=== PATIENT | male | born 1945 | race Caucasian/White ===

== ENCOUNTER 2019-01-16 19:49 | Inpatient (IN) | payer OTHER ==
[~2019-01-16] VITALS: Ht 193 cm; Wt 99.8 kg
[2019-01-16 19:49] VITALS: BP_SYST 110
--- NOTE | 2019-01-16 19:49 | NUR ---
Placed in room 04. Placed on cardiac exercise specialist, blood pressure machine and pulse oximeter. To gown for exam. Side rails up. Report given to MAYO Richardson. BIB sq 184 from [facility]
--- NOTE | 2019-01-16 19:50 | NUR ---
ER Dr. Sol at bedside examining patient.
[2019-01-16] MEDS ORDERED: NACL 0.9% 1,000 ML IV SCH (19:55)
[2019-01-16] MEDS ORDERED: MOM PO (20:05)
[2019-01-16] MEDS ORDERED: DOCU-144 PO (20:05)
[2019-01-16] MEDS ORDERED: TOP25 PO (20:05)
[2019-01-16] MEDS ORDERED: FINA5TAB3 PO (20:05)
[2019-01-16] MEDS ORDERED: DABI150C PO (20:05)
[2019-01-16] MEDS ORDERED: NEUTPHOSP PO (20:05)
[2019-01-16] MEDS ORDERED: VITD2000 PO (20:05)
[2019-01-16] MEDS ORDERED: TAMS0.4C96 PO (20:05)
[2019-01-16] MEDS ORDERED: CHOL500037 PO (20:05)
[2019-01-16] MEDS ORDERED: FERR140T2 PO (20:05)
[2019-01-16] MEDS ORDERED: DILT240C91 PO (20:05)
[2019-01-16] MEDS ORDERED: LACT1CAP89 PO (20:05)
[2019-01-16] MEDS ORDERED: POTA20TA83 PO (20:05)
[2019-01-16] MEDS ORDERED: SIMV20TA2 PO (20:08)
[2019-01-16] MEDS ORDERED: SENN-234 PO (20:08)
[2019-01-16] MEDS ORDERED: ACET-2165 PO (20:08)
[2019-01-16] MEDS ORDERED: HYDR-4274 PO (20:08)
--- NOTE | 2019-01-16 20:09 | NUR ---
Medication reconciliation completed with information provided by [facility]. Any prior medication reconciliation on file was reviewed and corrected.
[2019-01-16 20:25] LABS: BLOOD, URINE 3+ (NEGATIVE); CLARITY/URINE SL CLOUDY (CLEAR); COLOR,URINE AMBER (YELLOW); GLUCOSE,URINE NEGATIVE (NEGATIVE); KETONES,URINE NEGATIVE (NEGATIVE); LEUKOCYTE ESTERASE ,URINE 3+ (NEGATIVE); NITRITE, URINE NEGATIVE (NEGATIVE); PH,URINE 5.5 (5.0-8.0); PROTEIN URINE 2+ (NEGATIVE)
--- NOTE | 2019-01-16 20:25 | NUR ---
Pt BIB ALS C/O hypotension EMS started 22G on scene and gave 500ml bolus prior to arrival. Pt recently underwent hernia repair and has been admitted for sepsis/ septic shock after proceedure. Today the pt presented hypotension and hand pain. [facility] the RT phalanges. Denies any other complaints at this time. Will continue to monitor.
[2019-01-16 20:33] LABS: BILIRUBIN,URINE NEGATIVE (NEGATIVE)
[2019-01-16 20:35] LABS: BACTERIA,URINE MANY /HPF (None Seen); RBC,URINE 50-80 /HPF (0-3); WBC,URINE >100 /HPF (0-3)
[2019-01-16 20:36] LABS: HEMATOCRIT 28.7 % (36-54); HEMOGLOBIN 9.4 g/dL (14.0-18.0); MEAN CORPUSCULAR HEMOGLOBIN 27 pg (27-31); MEAN CORPUSCULAR HGB CONC 33 % (32-36); MEAN CORPUSCULAR VOLUME 83 fL (79.0-98.0); PLATELET COUNT (AUTO) 286 K/uL (130-430); RED BLOOD CELL COUNT(AUTO) 3.46 MIL/uL (4.2-6.2); RED CELL DISTRIBUTION WIDTH 15.8 % (9.0-15.0)
[2019-01-16 20:36] LABS: MUCUS,URINE None Seen /LPF (None Seen)
[2019-01-16 20:38] LABS: INR 1.3 (0.80-1.20); PROTHROMBIN TIME 13.4 SECS (9.5-12.5)
[2019-01-16 20:39] LABS: ANION GAP 7 (5-15); CHLORIDE 103 mmol/L (98-107); CREATININE 1.64 mg/dL (0.55-1.30); GLUCOSE 96 mg/dL (70-99); POTASSIUM 3.6 mmol/L (3.5-5.1); SODIUM SERUM 134 mmol/L (136-145); UREA NITROGEN, BLOOD 19 mg/dL (8-21)
[2019-01-16 20:48] LABS: WHITE BLOOD COUNT (AUTO) 26.2 K/uL (4.8-10.8)
[2019-01-16 20:56] LABS: ALANINE AMINOTRANSFERASE 12 U/L (12-78); ALBUMIN 2.2 g/dL (3.4-4.8); ASPARTATE AMINOTRANSFERASE 20 U/L (10-37); THYROID STIMULATING HORMONE 1.18 uIu/mL (0.36-3.74); TOTAL BILIRUBIN 0.8 mg/dL (0.0-1.0)
[2019-01-16 20:57] LABS: BAND % (MANUAL) 10 % (0-6); BASOPHILS % (MANUAL) 0 % (0-2); EOSINOPHILS % (MANUAL) 0 % (0-7); LYMPHOCYTES % (MANUAL) 3 % (20-46); MONOCYTES % (MANUAL) 5 % (0-11)
--- NOTE | 2019-01-16 21:30 | NUR ---
Pt is resting in bed, no acute distress noted at this time. Will continue to monitor.
[2019-01-16] MEDS ORDERED: NOREPINEPHRINE BITARTRATE 4 MG in NS 246 ML IV ONE ×2 (22:15→23:45)
[2019-01-16] MEDS ORDERED: PIPERACILLIN/TAZO 3.375 GM in NS 50 ML IV ONE ×2 (22:15→23:30)
[2019-01-16] MEDS ORDERED: NACL 0.9% 1,000 ML IV ONE ×2 (22:15→23:30)
--- NOTE | 2019-01-16 23:00 | NUR ---
# 20 gauge angiocath placed to LT AC. Use of asceptic technique. Opsite placed over site. Blood return noted. Blood for lab drawn from site. Flushed with 10 cc of normal saline. No evidence of infiltration noted. Patient tolerated well.
[2019-01-16] MEDS ORDERED: PIPERACILLIN/TAZOBACTAM 3.375 GM/VIAL (ZOSYN) IV ONE ×2 (23:14→23:15)
[2019-01-16] MEDS ORDERED: NON-FORMULARY MEDICATION (Cholecalciferol* (Vitamin D3*) 50,000 UNIT) PO SCH (23:30)
[2019-01-16] MEDS ORDERED: ACETAMINOPHEN 325 MG TABLET PO PRN (23:30)
[2019-01-17] VITALS (16 sets, daily range): BP systolic 121–166
--- NOTE | 2019-01-17 00:09 | NUR ---
Pt is resting quietly in bed, no acute distress noted at this time. Will continue to monitor.
--- NOTE | 2019-01-17 00:12 | NUR ---
Patient will be admitted to care of Dr. Guerin. Admitted to ICU unit. Will go to room 8. Belongings list completed. Summary report printed. Report will be given at bedside.
--- NOTE | 2019-01-17 01:00 | NUR ---
ADMISSION NOTE Received patient from ER via gurney. Patient admitted with diagnosis of SEPTIC SHOCK. Patient is awake, alert, oriented X 4. Patient oriented to hospital room, call light, toileting, pain management and safety-teach back done. Personal belongings checked and Belongings List documented. Call light within reach.
--- NOTE | 2019-01-17 01:10 | NUR ---
Transfer to ICU via ACLS protocol. Licensed nurse present. IV present no signs or symptoms of infiltration.
--- NOTE | 2019-01-17 01:52 | NUR ---
CONSULTATION PAGED/CALLED Reason for Consultation:Septic Shock Person Who was Notified:Brittney cuevas Consulting Physician: Dr Carrasco (Dr Dupree) Monotype Operator Specialty: Pulmonary Ordering Physician: Dr Guerin
--- NOTE | 2019-01-17 01:52 | NUR ---
CONSULTATION PAGED/CALLED Reason for Consultation:Septic Shock Person Who was Notified:Brittney cuevas Consulting Physician: Dr Rodriguez Vision Impaired Teacher Specialty: Cardio Ordering Physician: Dr Guerin
--- NOTE | 2019-01-17 01:52 | NUR ---
CONSULTATION PAGED/CALLED Reason for Consultation:Septic Shock Person Who was Notified:Brittney cuevas Consulting Physician: Dr Raj Auguste Continuity Editor Specialty: ID Ordering Physician: Dr Guerin
--- NOTE | 2019-01-17 04:00 | NUR ---
BM PT PLACED ON BEDPAN AT THIS TIME. MODERATE AMOUNT OF SOFT BROWN STOOL NOTED. PT TOLERATED WELL. WILL CONTINUE TO MONITOR PT.
[2019-01-17] MEDS: PIPERACILLIN/TAZO 3.375 GM in NS 50 ML IV SCH ×3 (05:56→17:32)
[2019-01-17] MEDS ORDERED: PIPERACILLIN/TAZOBACTAM 3.375 GM/VIAL (ZOSYN) IV ONE (06:01)
--- NOTE | 2019-01-17 07:25 | NUR ---
ENDORSEMENT BEDSIDE REPORT GIVEN TO SHAWN HUBER USING SBAR APPROACH.
--- NOTE | 2019-01-17 07:50 | NUR ---
AM ASSESSMENT. PT ALERT, AND ABLE TO MAKE NEEDS KNOWN. VITAL SIGNS TAKEN, POULTRY HANGER SINUS TACHYCARDIA, WITH MINIMAL DISCOMFORTS TO LOWER ABDOMEN. PT HAD HIS PAIN MED 2 HOURS AGO. HX HERNIA REPAIR. THE TIP OF HIS RIGHT RING FINGER CYANOTIC , REMAINING FINGERS REDDENED EXCEPT HIS 2 THUMBS. HE STATED THAT HE HAD NOTICED ALL THESE WHEN HE WAS IN REHAB WHICH WAS ABOUT 3 WEEKS AGO.
[2019-01-17] MEDS ORDERED: FERROUS SULFATE 325 MG TABLET.DR PO SCH (08:00)
[2019-01-17] MEDS ORDERED: POTASSIUM CHLORIDE 20 MEQ TAB.PRT.SR PO SCH (09:00)
[2019-01-17] MEDS ORDERED: LACTOBACILLUS RHAMNOSUS GG 1 CAP CAPSULE PO SCH (09:00)
[2019-01-17] MEDS ORDERED: NAPH,MB-DB/K PH,MBDB 250 MG TAB PO SCH (09:00)
[2019-01-17] MEDS ORDERED: CHOLECALCIFEROL (VITAMIN D3) 2,000 UNIT TABLET PO SCH (09:00)
[2019-01-17] MEDS ORDERED: MILK OF MAGNESIA 30 ML UDC PO SCH (09:00)
[2019-01-17] MEDS ORDERED: DOCUSATE SODIUM 100 MG CAPSULE PO SCH (09:00)
[2019-01-17] MEDS ORDERED: TOPIRAMATE 25 MG TABLET(TOPAMAX) PO SCH (09:00)
[2019-01-17] MEDS ORDERED: FINASTERIDE 5 MG TABLET (PROSCAR) PO SCH (09:00)
[2019-01-17] MEDS ORDERED: DILTIAZEM HCL 240 MG CAP.SR.24H PO SCH (09:00)
[2019-01-17] MEDS ORDERED: HYDROcodone/ACETAMIN 10-325 MG TAB PO PRN (09:15)
--- NOTE | 2019-01-17 10:05 | NUR ---
PROCESS COACH. PT SEEN AND EXAMINED BY DR MONROY.
[2019-01-17] MEDS ORDERED: NACL 0.9% 1,000 ML IV SCH (11:15)
--- NOTE | 2019-01-17 11:30 | NUR ---
TEST. PATIENT HAVING AN ECHOCARDIOGRAM AT THIS HOUR.
--- NOTE | 2019-01-17 11:42 | NUR ---
Informed CM of urgent need to transfer to [place] for gangrene of the finger. Spoke with Jimmy.
[2019-01-17] MEDS ORDERED: *HEPARIN PER PHARMACY XX ONE (11:45)
--- NOTE | 2019-01-17 12:06 | NUR ---
Received call from Gonzalez PAULINE Martinez at [phone]. Complete review done with her and she is aware of urgent transfer for gangrene of finger. She will call the unit back directly. Jimmy with our CM dept made aware.
--- NOTE | 2019-01-17 12:10 | NUR ---
[place] transfer request: Informed Sherry [facility] dept # [phone] for the urgent transfer pt to [facility]. The pt will need Vascular surgery ashtyn. Sherry stated, SAMARA Michelle aware and is working on transferring the pt. She will call back once able to find an available bed and location. The pt and his cousin Bertha # [phone] made aware, both agreed with the transfer. Bertha will notify Christine/dtr as well. Bertha is pt's careers adviser and lives close to the pt. Christine lives in [place]. >> DC package delivered to ICU.-- RN Amy made aware.
[2019-01-17 12:20] LABS: HEMATOCRIT 29.7 % (36-54); HEMOGLOBIN 9.6 g/dL (14.0-18.0); MEAN CORPUSCULAR HEMOGLOBIN 27 pg (27-31); MEAN CORPUSCULAR HGB CONC 32 % (32-36); MEAN CORPUSCULAR VOLUME 83 fL (79.0-98.0); PLATELET COUNT (AUTO) 282 K/uL (130-430); RED BLOOD CELL COUNT(AUTO) 3.59 MIL/uL (4.2-6.2)
[2019-01-17 12:25] LABS: CHLORIDE 108 mmol/L (98-107); POTASSIUM 3.6 mmol/L (3.5-5.1); SODIUM SERUM 139 mmol/L (136-145)
[2019-01-17 12:40] LABS: WHITE BLOOD COUNT (AUTO) 22.3 K/uL (4.8-10.8)
[2019-01-17 12:46] LABS: ANION GAP 9 (5-15)
[2019-01-17 12:50] LABS: ATYPICAL LYMPHOCYTES % 0 % (0-0); BAND % (MANUAL) 7 % (0-6); BASOPHILS % (MANUAL) 0 % (0-2); EOSINOPHILS % (MANUAL) 0 % (0-7); LYMPHOCYTES % (MANUAL) 5 % (20-46); MONOCYTES % (MANUAL) 7 % (0-11)
[2019-01-17 12:55] LABS: CREATININE 1.36 mg/dL (0.55-1.30); GLUCOSE 80 mg/dL (70-99); UREA NITROGEN, BLOOD 18 mg/dL (8-21)
[2019-01-17] MEDS ORDERED: HEPARIN SODIUM,PORCINE 2000 UNITS/0.4 ML BOLUS IVP PRN (13:00)
[2019-01-17] MEDS ORDERED: HEPARIN SODIUM,PORCINE 5000 UNITS/ML VIAL IVP ONE (13:00)
[2019-01-17] MEDS ORDERED: HEPARIN SODIUM,PORCINE 3000 UNITS/0.6 ML BOLUS IVP PRN (13:00)
[2019-01-17] MEDS ORDERED: HEPARIN 25,000 UNITS in 250 ML PREMIX IV PRN (13:00)
--- NOTE | 2019-01-17 14:15 | NUR ---
IV DRIP. APTT 53.4, HEPARIN 8000 UNITS IVP GIVEN. HEPARIN DRIP INITIATED AT 1800 UNITS PER HR, WILL FOLLOW UP ON APTT DRAW AT [address] [facility].
--- NOTE | 2019-01-17 16:30 | NUR ---
FAMILY. CALL RECEIVED FROM PT'S DAUGHTER DONNA. UPDATE GIVEN. AWARE OF HER FATHER'S TRANSFER ORDERS TO [facility].
--- NOTE | 2019-01-17 18:38 | NUR ---
DISCHARGE. REPORT GIVEN TO MAYO GRAHAM. #[phone]. PT TRANSPORTED TO [facility] VIA AMBULANCE WITH PERSONAL BELONGINGS. SALINE LOCKS IN RIGHT UPPER ARM AND LEFT A/C INTACT AND FLUSHED, ALONSO CATHETER DRAINED 600 ML.
[2019-01-17] MEDS ORDERED: SIMVASTATIN 20 MG TABLET PO SCH (21:00)
[2019-01-17] MEDS ORDERED: TAMSULOSIN HCL 0.4 MG CAP PO SCH (21:00)
[2019-01-17] MEDS ORDERED: SENNOSIDES/DOCUSATE SODIUM 1 TAB TABLET(SENOKOT-S) PO SCH (21:00)
== END 2019-01-17 18:40 | disposition short-term general hospital (02) | DRG 871 ==
LOC: SED 19:49 → SIC 23:25
PROVIDERS: ADMIT Internal Medicine; ATTEND Internal Medicine
DX: A41.9 Sepsis, unspecified organism (principal); R65.21 Severe sepsis with septic shock; N39.0 Urinary tract infection, site not specified; I74.2 Embolism and thrombosis of arteries of the upper extremities; I96 Gangrene, not elsewhere classified; N40.0 Benign prostatic hyperplasia without lower urinary tract symptoms; I25.10 Atherosclerotic heart disease of native coronary artery without angina pectoris; E78.5 Hyperlipidemia, unspecified; I48.0 Paroxysmal atrial fibrillation; I10 Essential (primary) hypertension; D63.8 Anemia in other chronic diseases classified elsewhere; G89.29 Other chronic pain; F03.90 Unspecified dementia, unspecified severity, without behavioral disturbance, psychotic disturbance, mood disturbance, and anxiety; Z87.891 Personal history of nicotine dependence; Z79.02 Long term (current) use of antithrombotics/antiplatelets; Z79.899 Other long term (current) drug therapy
CPT/HCPCS: 36415; 71045; 80048; 80053; 81000-TC; 82550-TC; 83605; 83880; 84443-TC; 84484; 85007; 85027; 85610-TC; 85730-TC; 87040-TC; 87081; 87086; 87186-TC; 93005; 93306; 96361; 96365; 99285; J1644; J2543; J7030; J7050